=== PATIENT | female | born 2000 | race American Indian/Alaskan Native ===

== ENCOUNTER 2020-11-23 23:51 | Emergency (ER) | payer SELFPAY ==
[2020-11-24 00:45] VITALS: BP 114/84
== END 2020-11-24 03:13 | disposition left against medical advice (07) ==
LOC: ED 23:51
DX: F41.9 Anxiety disorder, unspecified (principal); Z53.21 Procedure and treatment not carried out due to patient leaving prior to being seen by health care provider

== ENCOUNTER 2021-04-27 20:16 | Emergency (ER) | payer BC ==
[2021-04-27 20:26] VITALS: BP 134/93
[2021-04-27] MEDS ORDERED: CLINDAMYCIN 300 MG CAP PO ONE (20:51)
[2021-04-27] MEDS ORDERED: IBUPROFEN 800 MG TAB PO ONE (20:51)
--- NOTE | 2021-04-27 21:00 | Emergency Department Report ---
HPI - General Chief Complaint: Dental/Oral Time Seen by Provider: 04/27/21 20:42 - HPI HPI: MSE 1 The patient is a 21-year-old female present with a chief complaint of dental pain. Patient states approximately 1 month ago she broke tooth #30 while chew ing a [place] [employer] candy. Patient states she has had intermittent pain for the past month but the pain returned 4 days ago and has been constant. When asked if she has had a fever patient states her T-max was 99.9. Patient states she has not yet seen a dentist for this complaint. Patient gives her pain a score of 8/10 ED Past Medical Hx - Past Medical History Hx Hypertension: Yes Hx Asthma: Yes - Surgical History Past Surgical History?: No - Family History Family history: no significant - Social History Smoking Status: Never Smoker Substance Use Type: None (Denies illicit drug use) - Medications Home Medications: Home Medications Medication Instructions Recorded Confirmed Last Taken Type Clindamycin [Clindamycin CAP] 300 mg PO Q6H #28 capsule 04/27/21 Unknown Rx HYDROcodone/APAP 5-325 [Collison 1 - 2 each PO Q6HR PRN #14 tablet 04/27/21 Unknown Rx 5/325] Ibuprofen [Motrin 800 MG tab] 800 mg PO Q8HR PRN #20 tablet 04/27/21 Unknown Rx ED Review of Systems ROS: Stated complaint: TOOTHACHE, HEADACHE Other details as noted in HPI Constitutional: denies: fever ENT: dental pain Physical Exam - Physical Exam Vital Signs: Vital Signs 04/27/21 20:23 Temperature 98.7 F Pulse Rate 75 Respiratory 18 Rate Blood Pressure 134/93 [Right] O2 Sat by Pulse 96 Oximetry Physical Exam: GENERAL: The patient is well-developed well-nourished []. [] HEENT: Normocephalic. Atraumatic. Extraocular motions are intact. Central hole in tooth #30. No gingival erythema or swelling appreciated. NECK: Supple. Trachea midline. There is bilateral cervical lymphadenopathy nontender CHEST/LUNGS: There is no respiratory distress noted. SKIN: There is no diaphoresis. NEURO: The patient is awake, alert, and oriented. The patient is cooperative. The patient has normal speech. GCS 15 ED Course Vital Signs 04/27/21 20:23 Temperature 98.7 F Pulse Rate 75 Respiratory 18 Rate Blood Pressure 134/93 [Right] O2 Sat by Pulse 96 Oximetry ED Medical Decision Making - Differential Diagnosis Dental fracture, dental caries, Critical care attestation.: If time is entered above; I have spent that time in minutes in the direct care of this critically ill patient, excluding procedure time. ED Disposition Clinical Impression: Broken tooth, Pain, dental Disposition: HOME / SELF CARE / HOMELESS Is pt being admited?: No Does the pt Need Aspirin: No Condition: Stable Instructions: Tooth Injuries, [id number] Additional Instructions: Return to the emergency department should you develop worsening symptoms, inability to tolerate food or liquids, high fever or any other concerns Prescriptions: Clindamycin [Clindamycin CAP] 300 mg PO Q6H #28 capsule Ibuprofen [Motrin 800 MG tab] 800 mg PO Q8HR PRN #20 tablet PRN Reason: Pain, Moderate (4-6) HYDROcodone/APAP 5-325 [Collison 5/325] 1 - 2 each PO Q6HR PRN #14 tablet PRN Reason: Pain Referrals: [facility] [Outside] - 3-5 Days Time of Disposition: 21:03
== END 2021-04-27 21:28 | disposition home or self-care (01) ==
LOC: ED 20:16
DX: S02.5XXA Fracture of tooth (traumatic), initial encounter for closed fracture (principal); J45.909 Unspecified asthma, uncomplicated; I10 Essential (primary) hypertension; X58.XXXA Exposure to other specified factors, initial encounter; Y93.89 Activity, other specified; Y92.89 Other specified places as the place of occurrence of the external cause; Y99.8 Other external cause status
CPT/HCPCS: 99282